=== PATIENT | male | born 1955 | race Caucasian/White ===

== ENCOUNTER 2017-08-11 06:40 | Day surgery (SDC) | payer OTHER ==
[2017-08-11] MEDS ORDERED: Midazolam 1 MG/ML 2 ML SDV ONE (07:20)
[2017-08-11] MEDS ORDERED: Propofol 200 MG/20 ML SDV ONE (07:20)
[2017-08-11] MEDS ORDERED: fentaNYL 100 MCG/2 ML SDV ONE (07:20)
[2017-08-11] MEDS ORDERED: Lactated Ringers 1,000 ML IV SCH (07:30)
[2017-08-11 10:23] VITALS: BP 120/82
--- NOTE | 2017-08-11 12:58 | OR ---
DATE OF PROCEDURE: 08/11/2017 PREOPERATIVE DIAGNOSIS: Colon cancer screening. POSTOPERATIVE DIAGNOSIS: Rectal polyp. PROCEDURE: Colonoscopy to the cecum with biopsy resection of a rectal polyp. SURGEON: Freddy Baker MD ANESTHESIA: IV anesthesia with monitored anesthesia care. INDICATION: This 62-year-old white male is referred for a colonoscopy for colon cancer screening. His last colonoscopic exam was done 10 years ago. I counseled him for the procedure, including the risks and alternatives, and he gave his informed consent to proceed. DESCRIPTION OF PROCEDURE: The patient was placed in the left lateral decubitus position. IV anesthesia was administered by the Anesthesia Service. Time-out was held. A rectal exam was performed, which was unremarkable. The flexible video Olympus colonoscope was introduced through his anus, up his rectum, and out his colon all the way to the cecum. Once the cecum was reached, the scope was slowly withdrawn, examining the mucosa throughout. No mucosal abnormalities were noted, until we reached the rectum. Here, we retroflexed the scope, with the distal rectum appearing unremarkable. The scope was straightened, and a polyp was encountered, which we then removed with the biopsy forceps. This involved several bites of the biopsy forceps. The scope was then removed. He tolerated the procedure well. Freddy Baker MD /[id number]
== END 2017-08-11 10:10 | disposition home or self-care (01) ==
LOC: JP.SDS 06:40
PROVIDERS: ATTEND Surgery
DX: Z12.11 Encounter for screening for malignant neoplasm of colon (principal); D12.8 Benign neoplasm of rectum; I10 Essential (primary) hypertension; K21.9 Gastro-esophageal reflux disease without esophagitis
CPT/HCPCS: 45380; 88305; J2250; J2704; J3010; J7120